=== PATIENT | female | born 1985 | race Caucasian/White ===

== ENCOUNTER 2020-10-18 16:57 | Emergency (ER) | payer MEDICAID, OTHER ==
[~2020-10-18] VITALS: Ht 160 cm; Wt 74.8 kg
[2020-10-18 17:18] VITALS: BP 151/72
--- NOTE | 2020-10-18 17:21 | NUR ---
Pt taken to lobby.
--- NOTE | 2020-10-18 17:33 | NUR ---
34/F FROM TRIAGE WITH A C/O VAGINAL BLEEDING AND CRAMPING X 2 DAYS. PT STATES SHE HAS MEDIUM SIZED BLOOD CLOTS. LMP 09/09/20. [id number]. PMH: 2 MISCARRIAGES. NATALYA
--- NOTE | 2020-10-18 17:33 | NUR ---
Dr. Chery at pt bedside for further evaluation.
--- NOTE | 2020-10-18 17:44 | NUR ---
Pt ambulated to restroom for UA collection.
--- NOTE | 2020-10-18 17:46 | NUR ---
PT STATES SHE IS RH- AND HAS RECEIVED RHOGAM LAST WEEK.
[2020-10-18 18:03] LABS: APPEARANCE,URINE HAZY (CLEAR); BILIRUBIN,URINE NEGATIVE (NEGATIVE); BLOOD, URINE 3+ (NEGATIVE); COLOR,URINE DARK YELLOW (YELLOW); LEUKOCYTE ESTERASE ,URINE TRACE (NEGATIVE); NITRITE, URINE NEGATIVE (NEGATIVE); PH,URINE 5.5 (5.0-9.0); UGLUCOSE NEGATIVE (NEGATIVE)
[2020-10-18 18:05] LABS: BASOPHILS % (AUTO) 0.3 % (0.0-2.0); EOSINOPHILS # (AUTO) 0.1 K/uL (0-0.4); EOSINOPHILS % (AUTO) 2.1 % (0.0-4.0); HEMATOCRIT 32.9 % (36-48); LYMPHOCYTES # (AUTO) 1.9 K/uL (2.5-16.5); LYMPHOCYTES % (AUTO) 29.7 % (20.5-51.1); MEAN CORPUSCULAR HEMOGLOBIN 26 pg (27-31); MEAN CORPUSCULAR HGB CONC 33 g/dL (33-37); MEAN CORPUSCULAR VOLUME 78.9 fL (80-94); MONOCYTES # (AUTO) 0.5 K/uL (0.8-1.0); MONOCYTES % (AUTO) 8.3 % (1.7-9.3); NEUTROPHILS # (AUTO) 3.9 K/uL (1.8-7.7); NEUTROPHILS % (AUTO) 59.6 % (42.2-75.2); PLATELET COUNT (AUTO) 411 K/uL (140-450); RED BLOOD CELL COUNT(AUTO) 4.17 MIL/uL (4.20-5.40); RED CELL DISTRIBUTION WIDTH 15.7 % (11.6-13.7); WHITE BLOOD COUNT (AUTO) 6.5 K/uL (4.8-10.8)
--- NOTE | 2020-10-18 18:09 | NUR ---
US tech at pt bedside.
[2020-10-18 18:38] LABS: RBC,URINE 11-20 (MOD) /HPF (0-5)
[2020-10-18] MEDS ORDERED: CEPH250C16 PO (19:17)
--- NOTE | 2020-10-18 19:18 | NUR ---
Gave report to JORDANA Young, transfer of care at this time.
--- NOTE | 2020-10-18 19:19 | NUR ---
RECEIVED REPORT FROM JORDANA HOLLINS FOR CONTINUITY OF CARE
[2020-10-18 19:36] VITALS: BP 151/72
== END 2020-10-18 19:36 | disposition home or self-care (01) ==
LOC: MED 16:57
DX: O20.0 Threatened abortion (principal); Z3A.01 Less than 8 weeks gestation of pregnancy
CPT/HCPCS: 36415; 76817; 81001; 81025; 84702; 85025; 86900; 86901; 87086; 99284